=== PATIENT | male | born 1950 | race Caucasian/White ===

== ENCOUNTER 2018-07-11 12:28 | Outpatient (REF) | payer MEDICARE, BC, SELFPAY ==
[2018-07-11 13:31] LABS: Anion Gap 9.8 mmol/L (3-11); BUN 22 mg/dL (7-18); CO2 30.2 mmol/L (21.0-32.0); CREATININE 1.31 mg/dL (0.70-1.30); Calcium 9.2 mg/dL (8.5-10.1); Chloride 101 mmol/L (98-107); Estimated GFR 54.74 (mL/min/1.73m2); Glucose 85 mg/dL (70-100); Sodium 141 mmol/L (136-145)
[2018-07-11 13:44] LABS: Cholesterol 228 mg/dL (50-200); HDL Cholesterol 43 mg/dL (40-60); LDL CHOLESTEROL 139 mg/dL (<100); Triglyceride 188 mg/dL (30-150)
== END 2018-07-11 12:48 ==
LOC: NCHCN 12:28
PROVIDERS: PCP Nurse Practitioner Family; Visit Provider Nurse Practitioner Family
DX: I10 Essential (primary) hypertension (principal); E78.5 Hyperlipidemia, unspecified
CPT/HCPCS: 80048; 80061; 83721

== ENCOUNTER 2019-08-18 09:44 | Outpatient (REF) | payer MEDICARE, BC, SELFPAY ==
[2019-08-18 12:34] LABS: Calculated LDL 148 mg/dL (<100); Cholesterol 213 mg/dL (<200); HDL Cholesterol 43 mg/dL (40-60); Triglyceride 112 mg/dL (<150)
== END 2019-08-18 10:04 ==
LOC: NCHCN 09:44
PROVIDERS: PCP Nurse Practitioner Family; Visit Provider Nurse Practitioner Family
DX: E78.5 Hyperlipidemia, unspecified (principal); I10 Essential (primary) hypertension; Z87.438 Personal history of other diseases of male genital organs
CPT/HCPCS: 80061

== ENCOUNTER 2021-02-11 11:05 | Outpatient (REF) | payer MEDICARE, BC, SELFPAY ==
[2021-02-11 14:45] LABS: HCT 42.8 % (40.0-50.0); HGB 14.3 g/dL (13.5-17.5); MCH 30.2 pg (27.0-33.0); MCHC 33.4 % (32.0-36.0); MCV 90.5 fL (80-95); MPV 10.2 fL (8.0-11.0); Platelet Count 234 10^3/uL (130-400); RBC 4.73 10^6/uL (4.36-5.78); RDW 12.7 % (11.8-14.1); WBC 6.49 10^3/uL (4.4-10.8)
[2021-02-11 14:53] LABS: Anion Gap 8.9 mmol/L (3-11); BUN 28 mg/dL (7-18); CO2 28.1 mmol/L (21.0-32.0); CREATININE 1.3 mg/dL (0.70-1.30); Calcium 9.5 mg/dL (8.5-10.1); Calculated LDL 151 mg/dL (<100); Chloride 104 mmol/L (98-107); Cholesterol 220 mg/dL (<200); Glucose 94 mg/dL (74-106); HDL Cholesterol 42 mg/dL (40-60); Potassium 3.8 mmol/L (3.5-5.1); Sodium 141 mmol/L (136-145); Triglyceride 138 mg/dL (<150)
[2021-02-12 10:40] LABS: PSA, Diagnostic 2.2 ng/mL (0.0-4.5)
== END 2021-02-11 11:06 | disposition home or self-care (01) ==
LOC: NCHCN 11:05
PROVIDERS: PCP Nurse Practitioner Family; Visit Provider Nurse Practitioner Family
DX: I10 Essential (primary) hypertension (principal); E78.5 Hyperlipidemia, unspecified; N42.9 Disorder of prostate, unspecified
CPT/HCPCS: 80048; 80061; 85027; 84153

== ENCOUNTER 2021-05-23 14:12 | Outpatient (REF) | payer MEDICARE, BC, SELFPAY ==
[2021-05-23 16:19] LABS: HCT 40.4 % (40.0-50.0); MCH 29.9 pg (27.0-33.0); MCHC 32.2 % (32.0-36.0); MCV 92.9 fL (80-95); Platelet Count 311 10^3/uL (130-400); RBC 4.35 10^6/uL (4.36-5.78); RDW-SD 44.3 fL; WBC 7.03 10^3/uL (4.4-10.8)
[2021-05-23 16:28] LABS: ESR 40 mm/hr (0-20)
[2021-05-23 16:57] LABS: ALT 26 U/L (16-63); AST 14 U/L (15-37); Albumin 3.7 g/dL (3.4-5.0); Alkaline Phosphatase 81 U/L (46-116); Anion Gap 7.7 mmol/L (3-11); BUN 27 mg/dL (7-18); Bilirubin, Total 0.3 mg/dL (0.2-1.0); C-Reactive Protein 1.47 mg/dL (0.0-0.3); CO2 29.3 mmol/L (21.0-32.0); CREATININE 1.4 mg/dL (0.70-1.30); Calcium 9.1 mg/dL (8.5-10.1); Chloride 104 mmol/L (98-107); Estimated GFR 50.25 (mL/min/1.73m2); Glucose 104 mg/dL (74-106); Sodium 141 mmol/L (136-145); Total Protein 7.3 g/dL (6.4-8.2)
[2021-05-26 02:00] LABS: Anaplasma phagocytophilum Negative (Negative); B. miyamotoi PCR Negative (Negative); Babesia divergens/MO-1 Negative (Negative); Babesia duncani Negative (Negative); Babesia microti Negative (Negative); Ehrlichia chaffeensis Negative (Negative); Ehrlichia ewingii/canis Negative (Negative); Ehrlichia muris eauclairensis Negative (Negative)
[2021-05-26 10:14] LABS: Lyme Ab w Rflx to Lyme Confirm Negative (Negative)
== END 2021-05-23 14:13 | disposition home or self-care (01) ==
LOC: NCHCN 14:12
PROVIDERS: PCP Nurse Practitioner Family; Visit Provider Nurse Practitioner Family
DX: M25.59 Pain in other specified joint (principal); W57.XXXA Bitten or stung by nonvenomous insect and other nonvenomous arthropods, initial encounter
CPT/HCPCS: 80053; 85027; 85652; 87798; 86140; 86618

== ENCOUNTER 2021-05-23 14:17 | Outpatient (CLI) | payer MEDICARE, BC, SELFPAY ==
--- NOTE | 2021-05-23 | DI.RAD_ITS ---
Exam(s) XR SHOULDER LT COMPLETE 2+V EXAM: XR SHOULDER LT COMPLETE 2+V CLINICAL HISTORY: LT SHOULDER PAIN, M25.512 TECHNIQUE: COMPARISON: CR XR SHOULDER RT COMPLETE 2+V from 05/23/2021 FINDINGS: Five views were obtained. There may be slight narrowing of the cartilaginous joint space of glenohum eral joint. There are minimal hypertrophic changes at the acromioclavicular joint. Mild marginal os teophyte formation noted involving the glenoid. 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 No other specific abnormality see n. RADIATION DOSE DELIVERED: Total DLP
--- NOTE | 2021-05-23 | DI.RAD_ITS ---
Exam(s) XR HIP PELVIS ADULT BL EXAM: XR HIP PELVIS ADULT BL CLINICAL HISTORY: HIP JOINT PAIN RT AND LT, M25.551, M25.552 TECHNIQUE: COMPARISON: No exams were available for comparison FINDINGS: Three views were obtained. There may be minimal narrowing of the cartilaginous joint spaces of the h ip superiorly. No other significant bony or soft tissue abnormality seen. IMPRESSION: RADIATION DOSE DELIVERED: Total DLP
--- NOTE | 2021-05-23 | DI.RAD_ITS ---
Exam(s) XR SHOULDER RT COMPLETE 2+V EXAM: XR SHOULDER RT COMPLETE 2+V CLINICAL HISTORY: PAIN RT SHOULDER, M25.511 TECHNIQUE: COMPARISON: No exams were available for comparison FINDINGS: Five views were obtained. There are mild hypertrophic degenerative changes of the acromioclavicular joint. There may be slight narrowing of the cartilaginous joint space of the glenohumeral joint. Mi ld marginal osteophyte formation of the glenoid and humeral head noted. No other bony or soft tissue abnormality seen. 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 RADIATION DOSE DELIVERED: Total DLP
--- NOTE | 2021-05-23 | DI.RAD_ITS ---
Exam(s) XR LUMBAR SPINE COMPLETE EXAM: XR LUMBAR SPINE COMPLETE CLINICAL HISTORY: ROEL HIP JOINT PAIN, M25.551, M25.552 TECHNIQUE: COMPARISON: No exams were available for comparison FINDINGS: Five views were obtained. There is loss of height of the intervertebral disc spaces at L3-4 and L4-5 . There are moderate hypertrophic endplate changes of the lumbar vertebrae. There are moderate hype rtrophic degenerative changes of the facet joints as well. No spondylolysis or spondylolisthesis. U nremarkable appearance of the SI joints. No evidence of fracture. IMPRESSION: Degenerative changes of the lumbosacral spine. RADIATION DOSE DELIVERED: Total DLP
== END 2021-05-23 14:37 ==
PROVIDERS: PCP Nurse Practitioner Family; Visit Provider Nurse Practitioner Family
DX: M25.551 Pain in right hip (principal); M25.552 Pain in left hip; M25.511 Pain in right shoulder; M25.512 Pain in left shoulder; M19.011 Primary osteoarthritis, right shoulder; M19.012 Primary osteoarthritis, left shoulder; M51.36 Other intervertebral disc degeneration, lumbar region; M47.816 Spondylosis without myelopathy or radiculopathy, lumbar region
CPT/HCPCS: 73521; 72110; 73030

== ENCOUNTER → 2021-08-05 13:42 | Outpatient (BNVA) | payer MEDICARE, BC, SELFPAY | PROVIDERS: PCP Nurse Practitioner Family; Referring Provider Nurse Practitioner Family; Visit Provider Student in an Organized Health Care Education/Training Program | DX: M19.011 Primary osteoarthritis, right shoulder (principal); M19.012 Primary osteoarthritis, left shoulder; M75.51 Bursitis of right shoulder; M75.52 Bursitis of left shoulder | CPT/HCPCS: 99203 ==

== ENCOUNTER 2021-08-21 16:45 | Outpatient (REF) | payer MEDICARE, BC, SELFPAY ==
[2021-08-22 14:45] LABS: COVID-19 RT-PCR UVMMC Result Negative (Negative)
== END 2021-08-21 16:46 | disposition home or self-care (01) ==
LOC: NCHCN 16:45
PROVIDERS: PCP Nurse Practitioner Family; Visit Provider Nurse Practitioner Family
DX: Z20.822 Contact with and (suspected) exposure to COVID-19 (principal)
CPT/HCPCS: U0003; U0005

== ENCOUNTER → 2021-08-25 10:01 | Outpatient (BNVA) | payer MEDICARE, BC, SELFPAY | PROVIDERS: PCP Nurse Practitioner Family; Referring Provider Nurse Practitioner Family | DX: M35.3 Polymyalgia rheumatica (principal) | CPT/HCPCS: 99214 ==

== ENCOUNTER 2021-08-26 02:28 | Outpatient (CLI) | payer MEDICARE, BC, SELFPAY ==
[2021-08-26 13:13] LABS: ESR 23 mm/hr (0-20)
[2021-08-26 13:43] LABS: C-Reactive Protein 16.76 mg/dL (0.0-0.3)
[2021-08-27 17:41] LABS: Rheumatoid Factor <8.6 IU/mL (<12.0)
[2021-08-28 14:50] LABS: ANA Interpretation Positive (Negative); ANA Titer Pattern 1:160 Homogeneous
== END 2021-08-26 02:29 | disposition home or self-care (01) ==
LOC: LBO 02:28
PROVIDERS: PCP Nurse Practitioner Family; Visit Provider Physician Assistant Surgical
DX: M25.512 Pain in left shoulder; M25.551 Pain in right hip; M25.552 Pain in left hip; M25.59 Pain in other specified joint; M25.511 Pain in right shoulder
CPT/HCPCS: 36415; 85652; 86038; 86140; 86431

== ENCOUNTER 2021-09-23 20:26 | Outpatient (REF) | payer MEDICARE, BC, SELFPAY ==
[2021-09-23 21:27] LABS: ESR 80 mm/hr (0-20)
[2021-09-23 22:13] LABS: Anion Gap 9.2 mmol/L (3-11); BUN 25 mg/dL (7-18); C-Reactive Protein 6.94 mg/dL (0.0-0.3); CO2 26.8 mmol/L (21.0-32.0); CREATININE 1.3 mg/dL (0.70-1.30); Calcium 9.5 mg/dL (8.5-10.1); Chloride 104 mmol/L (98-107); Estimated GFR 54.73 (mL/min/1.73m2); Glucose 128 mg/dL (74-106); Potassium 4.5 mmol/L (3.5-5.1); Sodium 140 mmol/L (136-145)
== END 2021-09-23 20:27 | disposition home or self-care (01) ==
LOC: NCHCN 20:26
PROVIDERS: PCP Nurse Practitioner Family; Visit Provider Nurse Practitioner Family
DX: M35.3 Polymyalgia rheumatica (principal)
CPT/HCPCS: 80048; 85652; 86140

== ENCOUNTER → 2021-10-15 12:57 | Outpatient (BNVA) | payer MEDICARE, BC, SELFPAY | PROVIDERS: PCP Nurse Practitioner Family; Referring Provider Nurse Practitioner Family; Visit Provider Student in an Organized Health Care Education/Training Program | DX: M19.012 Primary osteoarthritis, left shoulder (principal); M35.3 Polymyalgia rheumatica; M19.011 Primary osteoarthritis, right shoulder | CPT/HCPCS: 99214 ==

== ENCOUNTER 2021-10-30 01:12 | Outpatient (CLI) | payer MEDICARE, BC, SELFPAY ==
--- NOTE | 2021-10-30 07:45 | DI.RAD_ITS ---
Exam(s) RF JOINT INJECTION FLUORO GUID EXAM: RF JOINT INJECTION FLUORO GUID CLINICAL HISTORY: L SHOULDER PAIN, fluoro guided injection,primary oa,m19.012 TECHNIQUE: Fluoroscopy provided. Radiologist not present. CONTRAST MATERIAL: None COMPARISON: No exams were available for comparison FINDINGS: Fluoroscopy was provided for left shoulder glenohumeral joint injection Submitted image(s) reveal needle placement the superomedial aspect humeral head Please refer to the procedure report for complete details. Cumulative Dose: Ciscor=1.25 mGy IMPRESSION: RADIATION DOSE DELIVERED:
--- NOTE | 2021-10-30 14:20 | W.PROCNOTE ---
Date of service: 10/30/21 Time of Service: 14:00 Procedure Note Date of procedure: 10/30/21 Procedure: Left Shoulder Injection Surgeon/Proceduralist/Physician: Alon Sinclair Procedure Diagnosis: Left Shoulder Arthritis Procedure Indications: Evy has had persistent pain of the LEFT shoulder. Noninvasive measures have been tried. To serve as both diagnostic and therapeutic, an injection under fluoroscopy was recommended. I had discussed the risks of the procedure and the patient elected to proceed. Procedure Description: Evy was greeted in the flouroscopy room. The correct side was identified and the consent was reviewed with the patient and signed. The patient was then placed in the supine position on the fluoroscopy table. The LEFT shoulder was then prepped with Chloraprep. The anterior injection starting point was identiifed by bony landmarks and fluoroscopy. The skin and soft tissue in the tract of the injection was anesthetized with 1% Lidocaine. A spinal needle was then inserted deep into the shoulder joint at the level of the recess between the glenoid and superior humeral head. A small amount of Omnipaque solution was injected to confirm intraarticular placement. Once confirmed, the shoulder was injected with 5cc of 0.5% Bupivicaine and 80mg of Depo-Medrol. A bandaid was placed on the injection site. The patient tolerated the procedure well and noted improvement in pre-injection pain.
[2021-10-30] MEDS: Bupivacaine 0.5% Pres-Free 30 ML VIAL 5 ML IJ (14:21)
[2021-10-30] MEDS: Omnipaque 300 MG/ML 10 ML BTL IJ (14:22)
[2021-10-30] MEDS: methylPREDNISolone ACETATE 80 MG/ML VIAL IM (14:23)
== END 2021-10-30 01:32 ==
PROVIDERS: PCP Nurse Practitioner Family; Visit Provider Student in an Organized Health Care Education/Training Program
DX: M19.012 Primary osteoarthritis, left shoulder (principal); M25.512 Pain in left shoulder
CPT/HCPCS: 20610; 77002; J1040

== ENCOUNTER 2022-04-25 13:45 | Outpatient (REF) | payer MEDICARE, BC, SELFPAY ==
[2022-04-25 16:15] LABS: Abs Immature Grans 0.03 10^3/uL (0.0-0.06); Absolute Basophil Count 0.03 10^3/uL (0.0-0.2); Absolute Eosinophil Count 0.03 10^3/uL (0.0-0.7); Absolute Monocyte Count 0.31 10^3/uL (0.1-0.8); Absolute Neutrophil Count 6.13 10^3/uL (1.2-6.7); Basophils % 0.4; ESR 31 mm/hr (0-20); Eosinophils % 0.4; HCT 43.1 % (40.0-50.0); HGB 14.2 g/dL (13.5-17.5); Immature Grans % 0.4; Lymphocytes % 13.3; MCH 29.6 pg (27.0-33.0); MCHC 32.9 % (32.0-36.0); MCV 90 fL (80-95); MPV 9.8 fL (8.0-11.0); Monocytes % 4.1; Neutrophils % 81.4; Platelet Count 274 10^3/uL (130-400); RDW 14.1 % (11.8-14.1); RDW-SD 46.2 fL; WBC 7.53 10^3/uL (4.4-10.8)
[2022-04-25 16:24] LABS: ALT 26 U/L (16-63); AST 20 U/L (15-37); Alkaline Phosphatase 68 U/L (46-116); Anion Gap 8.3 mmol/L (3-11); BUN 20 mg/dL (7-18); Bilirubin, Total 0.4 mg/dL (0.2-1.0); C-Reactive Protein 0.76 mg/dL (0.0-0.3); CO2 28.7 mmol/L (21.0-32.0); CREATININE 1.3 mg/dL (0.70-1.30); Calcium 9.5 mg/dL (8.5-10.1); Chloride 104 mmol/L (98-107); Glucose 105 mg/dL (74-106); Potassium 4.2 mmol/L (3.5-5.1); Sodium 141 mmol/L (136-145); Total Protein 7.5 g/dL (6.4-8.2)
[2022-04-27 09:42] LABS: PSA, Diagnostic 2.7 ng/mL (<=6.5)
== END 2022-04-25 13:46 | disposition home or self-care (01) ==
LOC: LBN 13:45
PROVIDERS: Visit Provider Nurse Practitioner Family
DX: N41.9 Inflammatory disease of prostate, unspecified (principal); M35.3 Polymyalgia rheumatica; Z79.52 Long term (current) use of systemic steroids
CPT/HCPCS: 80053; 85652; 84153; 85025; 86140

== ENCOUNTER 2022-09-09 15:23 | Outpatient (REF) | payer MEDICARE, BC, SELFPAY ==
[2022-09-09 15:03] LABS: Calculated LDL 142 mg/dL (<100); Cholesterol 218 mg/dL (<200); HDL Cholesterol 52 mg/dL (40-60); Triglyceride 121 mg/dL (<150)
== END 2022-09-09 15:24 | disposition home or self-care (01) ==
LOC: NCHCN 15:23
PROVIDERS: Visit Provider Family Medicine
DX: E78.5 Hyperlipidemia, unspecified (principal)
CPT/HCPCS: 80061

== ENCOUNTER 2024-08-17 08:49 | Outpatient (REF) | payer MEDICARE, BC, SELFPAY ==
[2024-08-17 14:50] LABS: Anion Gap 6.5 mmol/L (3-11); BUN 21 mg/dL (7-18); CO2 29.5 mmol/L (21.0-32.0); CREATININE 1.5 mg/dL (0.70-1.30); Calcium 9.5 mg/dL (8.5-10.1); Calculated LDL 136 mg/dL (<100); Chloride 103 mmol/L (98-107); Cholesterol 212 mg/dL (<200); Estimated GFR 49.16 (mL/min/1.73m2); Glucose 96 mg/dL (74-106); HDL Cholesterol 54 mg/dL (40-60); Sodium 139 mmol/L (136-145); Triglyceride 112 mg/dL (<150)
== END 2024-08-17 08:50 | disposition home or self-care (01) ==
LOC: NCHCN 08:49
PROVIDERS: Visit Provider Family Medicine
DX: E78.5 Hyperlipidemia, unspecified (principal); I10 Essential (primary) hypertension
CPT/HCPCS: 80048; 80061

== ENCOUNTER 2024-08-28 10:26 | Outpatient (REF) | payer MEDICARE, BC, SELFPAY ==
[2024-08-28 20:37] LABS: CREATININE 1.4 mg/dL (0.70-1.30)
[2024-08-28 22:34] LABS: PSA, Screening 2.9 ng/mL (<=6.5)
== END 2024-08-28 10:27 | disposition home or self-care (01) ==
LOC: NCHCN 10:26
PROVIDERS: Visit Provider Family Medicine
DX: Z12.5 Encounter for screening for malignant neoplasm of prostate (principal)
CPT/HCPCS: 84153; 82565